=== PATIENT | female | born 1950 | race Caucasian/White ===

== ENCOUNTER 2020-08-26 09:24 | Emergency (ER) | payer OTHER, MEDICARE ==
[2020-08-26] MEDS ORDERED: MORPHINE 4 MG/ML SYR ONE (10:04)
[2020-08-26] MEDS ORDERED: ONDANSETRON 4 MG/2 ML VIAL ONE (10:05)
--- NOTE | 2020-08-26 10:33 | RAD REPORT ---
EXAM DESCRIPTION: RAD - Chest Single View - 08/26/2020 10:27 am CLINICAL HISTORY: fall Chest pain. COMPARISON: Chest Pa And Lat (2 Views) dated 12/13/2019 FINDINGS: Portable technique limits examination quality. The lungs are grossly clear. The heart is normal in size. Humeral head dislocation seen on the left w ith large greater tuberosity fracture fragment.
--- NOTE | 2020-08-26 10:36 | RAD REPORT ---
EXAM DESCRIPTION: RAD - Humerus Left - 08/26/2020 10:28 am CLINICAL HISTORY: PAIN Fall, left shoulder pain COMPARISON: No comparisons FINDINGS: Dislocation of the left humeral head is seen, likely anterior. Large fracture fragment of the greater tuberosity noted.
--- NOTE | 2020-08-26 10:36 | RAD REPORT ---
EXAM DESCRIPTION: RAD - Shoulder Left 2 View - 08/26/2020 10:27 am CLINICAL HISTORY: PAIN Fall, pain COMPARISON: No comparisons FINDINGS: Anterior dislocation of the left humeral head is noted. Large greater tuberosity fracture fragment seen.
[2020-08-26] MEDS ORDERED: FENTANYL CITR 100 MCG/2 ML ONE (11:00)
[2020-08-26] MEDS ORDERED: NA CHLORIDE 0.9% 1,000 ML ONE (11:01)
[2020-08-26] MEDS ORDERED: propofoL 200 MG/20 ML VIAL IV ONE (11:01)
--- NOTE | 2020-08-26 11:48 | RAD REPORT ---
EXAM DESCRIPTION: RAD - Shoulder 1 View - 08/26/2020 11:32 am CLINICAL HISTORY: post reduction Pain and swelling COMPARISON: No comparisons FINDINGS: The previously noted dislocation of the left humeral head has been reduced. Fracture of th e greater tuberosity is again seen, with mild displacement.
--- NOTE | 2020-08-26 12:07 | EDPHYS ---
Physician Documentation [facility] Name: Marilu Fox Age: 70 yrs Sex: Female : 1950 Arrival Date: 08/26/2020 Time: 09:27 Bed 4 Private MD: ED Physician Cristi Leone HPI: 08/26 09:47 This 70 yrs old Female presents to ER via Wheelchair with complaints of Fall rn Injury, Arm Pain. 09:47 Details of fall: The patient fell from an upright position, while walking. Onset: The rn symptoms/episode began/occurred just prior to arrival. Associated injuries: The patient sustained left arm. Severity of symptoms: At their worst the symptoms were moderate, in the emergency department the symptoms are unchanged. The patient has not experienced similar symptoms in the past. The patient has not recently seen a physician. Reports fall, tripped, [employer], + left arm pain and injury. Also feels a little left chest pain with deep breath since fall. No head injury or LOC, remembers all events. . Historical: - Allergies: 09:51 Sulfa (Sulfonamide Antibiotics); iw - Home Meds: 09:51 omeprazole 40 mg Oral cpDR 1 cap once daily [Active]; Lipitor 10 mg Oral tab 1 tab once iw daily [Active]; meloxicam 7.5 mg oral tab 1 tab once daily [Active]; escitalopram oxalate oral oral once daily [Active]; - PSHx: 09:51 Hysterectomy; Knee surgery; iw - Immunization history:: Adult Immunizations up to date. - Family history:: not pertinent. - Social history:: Smoking status: . - Hospitalizations: : No recent hospitalization is reported. ROS: 09:47 Constitutional: Negative for fever, chills, and weight loss, Eyes: Negative for injury, rn pain, redness, and discharge, ENT: Negative for injury, pain, and discharge, Neck: Negative for injury, pain, and swelling, Cardiovascular: Negative for palpitations, and edema, Respiratory: Negative for shortness of breath, cough, wheezing, and pleuritic chest pain, Abdomen/GI: Negative for abdominal pain, nausea, vomiting, diarrhea, and constipation, Back: Negative for injury and pain, MS/Extremity: + left arm pain and injury Skin: Negative for injury, rash, and discoloration, Neuro: Negative for headache, weakness, numbness, tingling, and seizure. Exam: 09:47 Constitutional: This is a well developed, well nourished patient who is awake, alert, rn and in no acute distress. Head/Face: Normocephalic, atraumatic. Neck: NO midline tenderness Chest/axilla: Mild left upper/lateral chest wall tenderness, no crepitus or ecchymosis Cardiovascular: Regular rate and rhythm. No pulse deficits. Respiratory: Speaking full sentences, unlabored Abdomen/GI: soft, non-tender Skin: Warm, dry MS/ Extremity: Pulses equal, no cyanosis. Neurovascular intact. + tenderness proximal/mid shaft left humerus without gross deformity Neuro: Awake and alert, GCS 15 Vital Signs: 09:38 BP 168 / 79; Pulse 59; Resp 16; Temp 98.4; Pulse Ox 98% on R/A; iw 10:30 Weight 102.06 kg (M); aa5 Procedures: 11:23 Reduction: of the left shoulder, using traction, manipulation, Immobilized with rn shoulder immobilizer. Patient tolerated well. Post reduction film - reveals improved alignment. Moderate sedation: Pre-procedure assessment: the patient has been NPO 4 hour(s) prior to arrival, ASA physical classification: I - healthy, no underlying organic disease, Airway assessment: able to hyperextend neck, able to maintain airway, can open mouth without difficulty, Monitoring during procedure: cardiac rehab nurse, continuous pulse oximetry, nurse at bedside at all times, Medications employed: Fentanyl, 50 mcg(s), propofol, Post-procedure assessment: the patient is mildly sedated, Respiratory status: even and unlabored, a reversal agent was not used. MDM: 09:33 Patient medically screened. rn 12:05 Differential diagnosis: contusion, fracture, sprain, dislocation. Data reviewed: vital rn signs, nurses notes, radiologic studies, plain films, and as a result, I will discharge patient. Counseling: I had a detailed discussion with the patient and/or guardian regarding: the historical points, exam findings, and any diagnostic results supporting the discharge/admit diagnosis, radiology results, the need for outpatient follow up, to return to the emergency department if symptoms worsen or persist or if there are any questions or concerns that arise at home. Response to treatment: the patient's symptoms have markedly improved after treatment, and as a result, I will discharge patient. Special discussion: I discussed with the patient/guardian in detail that at this point there is no indication for admission to the hospital. It is understood, however, that if the symptoms persist or worsen the patient needs to return immediately for re-evaluation. Based on the history and exam findings, there is no indication for further emergent testing or inpatient evaluation. I discussed with the patient/guardian the need to see the orthopedic surgeon for further evaluation of the symptoms. 08/26 09:40 Order name: XRAY Chest (1 view); Complete Time: 10:40 rn 08/26 09:40 Order name: XRAY Shoulder LEFT 2 view; Complete Time: 10:40 rn 08/26 09:40 Order name: XRAY Humerus LEFT; Complete Time: 10:40 rn 08/26 11:23 Order name: Shoulder (1 View) XRAY; Complete Time: 12:04 em1 08/26 09:40 Order name: IV Start; Complete Time: 09:50 rn 08/26 10:30 Order name: NPO; Complete Time: 10:35 rn 08/26 10:37 Order name: Conscious Sedation; Complete Time: 10:37 aa5 Administered Medications: 09:58 Drug: morphine 4 mg Route: IVP; Site: right antecubital; iw 11:00 Follow up: Response: No adverse reaction iw 09:58 Drug: Zofran (Ondansetron) 4 mg Route: IVP; Site: right antecubital; iw 11:00 Follow up: Response: No adverse reaction iw 11:12 Drug: fentaNYL (PF) 50 mcg Route: IVP; Site: right antecubital; iw 11:20 Follow up: Response: No adverse reaction iw 11:15 Drug: Propofol 40 mg Route: IVP; Site: right antecubital; iw 11:20 Follow up: Response: No adverse reaction; Patient is sedated iw 11:18 Drug: Propofol 90 mg Route: IVP; Site: right antecubital; iw 11:20 Follow up: Response: No adverse reaction; Patient is sedated iw Disposition: 08/26/20 12:06 Discharged to Home. Impression: Displaced fracture of greater tuberosity of left humerus, Anterior dislocation of left humerus. - Condition is Stable. - Discharge Instructions: Shoulder Dislocation, Humerus Fracture Treated With Immobilization. - Prescriptions for Tylenol- Codeine #3 300-30 mg Oral Tablet - take 1 tablet by ORAL route every 6 hours As needed; 15 tablet. Cyclobenzaprine 5 mg Oral Tablet - take 1 tablet by ORAL route 3 times per day As needed; 15 tablet. - Medication Reconciliation Form, Thank You Letter, Antibiotic Education, Prescription Opioid Use form. - Follow up: Samson Serna MD; When: 5 - 6 days; Reason: Recheck today's complaints, Re-evaluation by your physician. - Problem is new. - Symptoms have improved. Signatures: Dispatcher [employer] EDIN Indira Ramos RN RN iw Nieto, Roman, MD MD rn Calderon, Audri, RN RN aa5 Corrections: (The following items were deleted from the chart) 09:45 09:41 Shoulder Left 2 View ordered. [facility] 12:53 12:06 08/26/2020 12:06 Discharged to Home. Impression: Displaced fracture of greater aa5 tuberosity of left humerus; Anterior dislocation of left humerus. Condition is Stable. Forms are Medication Reconciliation Form, Thank You Letter, Antibiotic Education, Prescription Opioid Use. Follow up: Samson Serna; When: 5 - 6 days; Reason: Recheck today's complaints, Re-evaluation by your physician. Problem is new. Symptoms have improved. rn
--- NOTE | 2020-08-26 12:07 | ER ---
Nurse's Notes [facility] Name: Marilu Fox Age: 70 yrs Sex: Female : 1950 Arrival Date: 08/26/2020 Time: 09:27 Bed 4 Private MD: Diagnosis: Displaced fracture of greater tuberosity of left humerus;Anterior dislocation of left humerus Presentation: 08/26 09:36 Chief complaint: Patient states: tripped over rug this morning while getting dressed, iw fell onto left shoulder, pain through left shoulder and shoulder blade. 09:36 Method Of Arrival: Wheelchair iw 09:36 Acuity: GILMA 3 iw 09:37 Coronavirus screen: At this time, the client does not indicate any symptoms associated iw with coronavirus-19. Ebola Screen: Patient negative for fever greater than or equal to 101.5 degrees Fahrenheit, and additional compatible Ebola Virus Disease symptoms Patient denies exposure to infectious person. Patient denies travel to an Ebola-affected area in the 21 days before illness onset. No symptoms or risks identified at this time. Initial Sepsis Screen: Does the patient meet any 2 criteria? No. Patient's initial sepsis screen is negative. Does the patient have a suspected source of infection? No. Patient's initial sepsis screen is negative. Risk Assessment: Do you want to hurt yourself or someone else? Patient reports no desire to harm self or others. Onset of symptoms was August 26, 2020. Triage Assessment: 12:00 General: Appears in no apparent distress. distressed, Behavior is calm. iw Trauma Activation: Not Applicable Physician: ED Physician; Name: ; Notified At: ; Arrived At: Physician: General Surgeon; Name: ; Notified At: ; Arrived At: Physician: Radiology; Name: ; Notified At: ; Arrived At: Physician: Respiratory; Name: ; Notified At: ; Arrived At: Physician: Lab; Name: ; Notified At: ; Arrived At: Historical: - Allergies: 09:51 Sulfa (Sulfonamide Antibiotics); iw - Home Meds: 09:51 omeprazole 40 mg Oral cpDR 1 cap once daily [Active]; Lipitor 10 mg Oral tab 1 tab once iw daily [Active]; meloxicam 7.5 mg oral tab 1 tab once daily [Active]; escitalopram oxalate oral oral once daily [Active]; - PSHx: 09:51 Hysterectomy; Knee surgery; iw - Immunization history:: Adult Immunizations up to date. - Family history:: not pertinent. - Social history:: Smoking status: . - Hospitalizations: : No recent hospitalization is reported. Screenin:05 Abuse screen: Denies threats or abuse. Denies injuries from another. Nutritional iw screening: No deficits noted. Tuberculosis screening: No symptoms or risk factors identified. Fall Risk Fall in past 12 months (25 points). Assessment: 09:45 General: Appears uncomfortable, Behavior is cooperative, crying. Pain: Complains of iw pain in left shoulder. Neuro: Level of Consciousness is awake, alert, obeys commands, Oriented to person, place, time, situation, Moves all extremities. Cardiovascular: Patient's skin is warm and dry. Respiratory: Respiratory effort is even, unlabored, Respiratory pattern is regular. GI: No signs and/or symptoms were reported involving the gastrointestinal system. Derm: Skin is pink, warm \T\ dry. normal. Musculoskeletal: Range of motion: limited in left shoulder. 11:04 Reassessment: Patient appears in no apparent distress at this time. Patient and/or iw family updated on plan of care and expected duration. Pain level reassessed. Patient is alert, oriented x 3, equal unlabored respirations, skin warm/dry/pink. pt has been consented for moderate sedation and left shoulder reduction, placed on supplemental O2, suction set up, on director of cardiac cath lab. Vital Signs: 09:38 BP 168 / 79; Pulse 59; Resp 16; Temp 98.4; Pulse Ox 98% on R/A; iw 10:30 Weight 102.06 kg (M); aa5 ED Course: 09:27 Patient arrived in ED. as 09:33 Cristi Leone MD is Attending Physician. rn 09:36 Indira Ramos RN is Primary Nurse. iw 09:37 Triage completed. iw 09:38 Arm band placed on. iw 09:45 Patient has correct armband on for positive identification. iw 10:00 Inserted saline lock: 22 gauge in right antecubital area, using aseptic technique. iw 10:27 XRAY Chest (1 view) In Process Unspecified. EDMS 10:28 XRAY Shoulder LEFT 2 view In Process Unspecified. EDMS 10:28 XRAY Humerus LEFT In Process Unspecified. EDMS 11:25 Assist provider with reduction of left shoulder using manipulation, Set up for iw procedure. Performed by Cristi Leone MD Immobilized with shoulder immobilizer Patient tolerated well. 11:33 Shoulder (1 View) XRAY In Process Unspecified. EDMS 12:06 Samson Serna MD is Referral Physician. rn 12:52 IV discontinued, intact, bleeding controlled, No redness/swelling at site. Pressure iw dressing applied. Administered Medications: 09:58 Drug: morphine 4 mg Route: IVP; Site: right antecubital; iw 11:00 Follow up: Response: No adverse reaction iw 09:58 Drug: Zofran (Ondansetron) 4 mg Route: IVP; Site: right antecubital; iw 11:00 Follow up: Response: No adverse reaction iw 11:12 Drug: fentaNYL (PF) 50 mcg Route: IVP; Site: right antecubital; iw 11:20 Follow up: Response: No adverse reaction iw 11:15 Drug: Propofol 40 mg Route: IVP; Site: right antecubital; iw 11:20 Follow up: Response: No adverse reaction; Patient is sedated iw 11:18 Drug: Propofol 90 mg Route: IVP; Site: right antecubital; iw 11:20 Follow up: Response: No adverse reaction; Patient is sedated iw Outcome: 12:06 Discharge ordered by MD. rn 12:52 Discharged to home via wheelchair. iw 12:52 Condition: good 12:52 Discharge instructions given to patient, Instructed on discharge instructions, follow up and referral plans. medication usage, Demonstrated understanding of instructions, follow-up care, medications, Prescriptions given X 2. 12:53 Patient left the ED. aa5 Signatures: Dispatcher [employer] YOKONV Ruth Mesa as Indira Ramos, RN RN iw Cristi Leone MD MD rn Calderon, Audri, RN RN aa5 Corrections: (The following items were deleted from the chart) 09:41 09:36 Acuity: GILMA 4 iw iw 19:11 12:52 Discharge instructions given to patient, Instructed on discharge instructions, iw follow up and referral plans. medication usage, Demonstrated understanding of instructions, follow-up care, medications, Prescriptions given X 1, iw
[2020-08-26 12:57] VITALS: BP 168/79; TEMP 98.4; O2SAT 98
== END 2020-08-26 12:53 | disposition home or self-care (01) ==
LOC: ER 09:24
PROC: 0RSKXZZ Reposition Left Shoulder Joint, External Approach (ICD-10-PCS; principal; 2020-08-26)
DX: S43.015A Anterior dislocation of left humerus, initial encounter (principal); S42.252A Displaced fracture of greater tuberosity of left humerus, initial encounter for closed fracture; W01.10XA Fall on same level from slipping, tripping and stumbling with subsequent striking against unspecified object, initial encounter; Y93.89 Activity, other specified; Y92.018 Other place in single-family (private) house as the place of occurrence of the external cause
CPT/HCPCS: 71045; 73020; 73060; 73030; 96375; 96374; 99285; 23665; J2704; J3010; J7030; J2405